=== PATIENT | female | born 1975 ===

== ENCOUNTER → 2018-03-18 | Day surgery (SDC) | payer BC ==
[2018-03-14 09:21] VITALS: Ht 163.8 cm; Wt 106.8 kg
[~2018-03-18] VITALS: Ht 163.8 cm; Wt 106.8 kg
[~2018-03-18] MED LIST: ATROPINE SULFATE 0.1 MG/ML 5ML SYR IV PRN; BUPIVACAINE 0.5 % 5 MG/1 ML PF 10ML VIAL ONE; CYAN100020 PO; DEXAMETHASONE SOD INJ 4 MG/ML VIAL ONE; ERGO500037 PO; ESOM20CA PO; EpHEDrine SULFATE INJ 50 MG/ML AMP IV PRN; EpINEphrine INJ 1MG/ML AMP 1 MG/ML AMP ONE; FAMO40TA6 PO; FENTANYL CITRATE INJ 50 MCG/1 ML 2 ML VIAL IV PRN; FENTANYL CITRATE INJ 50 MCG/1 ML 2 ML VIAL ONE; KETOROLAC TROMETHAMINE 30 MG/ML VIAL ONE; LACTATED RINGER'S 1000ML 1,000 ML IV SCH; LIDOCAINE HCL 2% 2 ML VIAL (20MG/ML) ONE; MELO-84 PO; MIDAZOLAM HCL 1 MG/ML 2ML VIAL ONE; ONDANSETRON INJ 2 MG/ML 2 ML VIAL IV PRN; ONDANSETRON INJ 2 MG/ML 2 ML VIAL ONE; OXYCODONE/ACETAMINOPHEN 5-325 TAB PO PRN; PROPOFOL IV EMULSION 10 MG/ML 20 ML VIAL ONE; ROPIVACAINE 0.5% 5 MG/ML 30 ML VIAL ONE; SODIUM CHLORIDE 0.9% 1000ML 1,000 ML IV SCH; TRAM-10 PO
--- NOTE | 2018-03-18 07:52 | History & Physical Bridge - [place] ---
H&P Re-Evaluation Bridge Note: I have examined the patient, reviewed the History & Physical and in the interval since the performance of the History & Physical I have noted the following changes of clinical significance: No changes noted
[2018-03-18] MEDS: CEFAZOLIN 2000MG IV PUSH 15 ML IV SCH ×2 (07:55→08:34)
--- NOTE | 2018-03-18 09:04 | [facility] Post Operative Brief Note ---
Immediate Operative Summary Operative Date Mar 18, 2018. Pre-Operative Diagnosis Right Knee Acute Lateral Meniscal Tear Post-Operative Diagnosis Right Knee Acute Lateral Meniscal Tear, Grade 3 DJD of trochleal groove Procedure(s) Performed Right Knee Arthroscopy, Lateral Meniscectomy, CHONDROPLAST TROCHLEAR GROOVE Surgeon Dr Randle Technical Engineer Surgeon(s) DMITRY Domínguez Estimated Blood Loss 0ml Findings Consistent with Post-Op Diagnosis Specimens none Drains None Anesthesia Type General Complication(s) none Disposition Accompanied Pt To Recover: no Disposition: Recovery Room / PACU
--- NOTE | 2018-03-18 09:17 | Discharge Instructions-SurgCtr ---
Discharge Instructions Date of Service Mar 18, 2018. Visit Reason for Visit: Right Knee Acute Lateral Meniscal Tear Discharge Discharge Diagnosis / Problem: SAME ABOVE Discharge Goals Goal(s): Decrease discomfort, Improve function Activity Recommendations Activity Limitations: as noted below Lifting Limitations: until after follow-up appointment Exercise/Sports Limitations: until after follow-up appointment Shower/Bathe: tomorrow Weightbearing Status: Right weightbearing (as tolerated) Anesthesia . Post Anesthesia Instructions: If you have had General Anesthesia or IV Sedation: * Do not drive today. * Resume driving when surgeon permits. * Do not make important decisions or sign legal documents today. * Call surgeon for: 1. Temperature elevations greater than 101 degrees F. 2. Uncontrollable pain. 3. Excessive bleeding. 4. Persistent nausea and vomiting. 5. Medication intolerance (nausea, vomiting or rash). * For nausea and vomiting use only clear liquids such as: tea, soda, bouillon until nausea subsides, then gradually increase diet as tolerated. * If you have any concerns or questions, call your surgeon's office. If physician is unavailable and it is an emergency, call 911 or go to the nearest emergency room. . Instructions / Follow-Up Instructions / Follow-Up MEDICATIONS: * Resume previous medications unless instructed otherwise by your surgeon. * Always take pain medication on a full stomach or with food to avoid upset stomach. * Do not drink alcohol or drive while taking narcotics. * Ibuprofen or Tylenol may be taken if narcotic not needed. SPECIAL CARE INSTRUCTIONS: __ None _X_ Keep extremity elevated and iced x 48 hours; apply ice 20-30 minutes 8-10 times/day. May remove at night. __ Crutches __ May discard when able __ Brace/Post-op shoe __ 24 hrs/day __ Remove at night _X_ Dressing __ Maintain until seen in office, may shower with plastic over site _X_ Remove dressings in 24-48 hours and then may shower _X_ Cover incisions with band-aids after showering __ Do not remove steri-strips Call physician if chills or temperature rises above 102 degrees or pain unrelieved by prescribed pain medications. Office [phone] Diet Recommendations Home Diet: resume previous diet Procedures Procedures Performed: Right Knee Arthroscopy, Lateral Meniscectomy, CHONDROPLAST TROCHLEAR GROOVE Pending Studies Studies pending at discharge: no Medical Emergencies . Who to Call and When: Medical Emergencies: If at any time you feel your situation is an emergency, please call 911 immediately. . Non-Emergent Contact Non-Emergency issues call your: Primary Care Provider . . "Provider Documentation" section prepared by Vicente Gray. .
--- NOTE | 2018-03-18 09:45 | OPERATIVE REPORT ---
DATE OF OPERATION: 03/18/2018 PREOPERATIVE DIAGNOSIS: Lateral meniscus tear, right knee. POSTOPERATIVE DIAGNOSES: 1. Complex tear with associated flap lateral meniscus, right knee. 2. 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 PROCEDURES: 1. Right knee arthroscopy. 2. Partial lateral meniscectomy. 3. Chondroplasty trochlear groove patellofemoral joint. SURGEON: Shaheen Randle MD MATCHING MACHINE OPERATOR: Vicente Gray PA-C. ANESTHESIOLOGIST: Dr. Dejesus. ANESTHESIA: LMA. DRAINS: None. COMPLICATIONS: None. CONDITION: Patient tolerated the procedure well and returned to recovery in apparent satisfactory condition. INDICATIONS FOR SURGERY: Destinee is a 43-year-old female who injured her knee and sustained a lateral meniscus tear. Physical exam, history and MRI were consistent with lateral meniscal pathology and she elected to go ahead and proceed with surgery. Procedure, expected outcomes, side effects and risks were all explained in detail. PROCEDURE: Patient was taken to the OR at which time she was placed supine on the table and put to sleep by anesthesia department. Examination of left knee was performed. Ligamentous miles, it was stable. We went ahead and prepped and draped in usual sterile fashion. We began arthroscopic examination anteromedial and anterolateral portals. Medial compartment was inspected and found to be normal. ACL was fine. We found a flap tear of the lateral meniscus and a piece was up into the joint. We removed this portion first and we trimmed back to a stable rim. The articular surfaces looked to be in good shape. Inspected the patellar joint and patellofemoral joint, we found a grade 4 lesion of the trochlear groove, it was probably about 3 x 3 cm in size. Chondroplasty was done here. There were some slight changes also underneath surface of the patella. Light debridement was done here with some synovitis also which was removed. Remaining examination, the knee was unremarkable. All cannulas were removed. Portals were closed with 4-0 nylon sutures. 30 mL of ropivacaine, 10 mg of Toradol, and 1 mL of epinephrine was placed in the knee joint. Placed sterile dressing of Xeroform, 4 x 4, ABD, Sof-Rol, and an Gaetano bandage. SURGICAL FINDINGS: Include: 1. A displaced complex flap tear of the lateral meniscus. 2. She had grade 4 articular damage to the trochlear groove of the patellofemoral joint. I attest to the content of the Intraoperative Record and any orders documented therein. Any exceptions are noted below. ELROYD
[2018-03-18 09:53] VITALS: TEMP 36.1
--- NOTE | 2018-03-18 10:01 | Anesthesia Progress Nt - [facility] ---
Anesthesia Post Op Note Date & Time Mar 18, 2018 at 10:01 Vital Signs Pain Intensity: 2 Vital Signs Past 12 Hours Date Time Temp Pulse Resp B/P (MAP) Pulse Ox O2 Delivery O2 Flow Rate FiO2 03/18/18 09:57 72 18 03/18/18 09:57 72 18 94 03/18/18 09:56 117/68 03/18/18 09:53 36.1 69 20 117/68 95 Room Air 03/18/18 09:52 66 15 03/18/18 09:52 64 15 100 03/18/18 09:51 121/77 03/18/18 09:47 70 15 03/18/18 09:47 69 15 93 03/18/18 09:46 134/78 03/18/18 09:42 77 11 95 03/18/18 09:42 77 11 03/18/18 09:41 116/63 03/18/18 09:37 77 17 03/18/18 09:37 77 17 98 03/18/18 09:36 111/82 03/18/18 09:32 74 20 100 03/18/18 09:32 75 20 03/18/18 09:31 78 16 03/18/18 09:31 81 16 128/72 99 03/18/18 09:26 76 9 132/73 100 03/18/18 09:26 76 9 03/18/18 09:21 88 10 126/72 96 03/18/18 09:21 85 10 03/18/18 09:16 79 19 122/67 97 03/18/18 09:16 79 19 03/18/18 09:12 112/66 03/18/18 09:11 36.0 77 16 112/66 96 Mask 6 03/18/18 07:35 36.2 76 16 106/74 (85) 98 Room Air Notes Mental Status: alert / awake / arousable, participated in evaluation Pt Amnestic to Procedure: Yes Nausea / Vomiting: adequately controlled Pain: adequately controlled Airway Patency, RR, SpO2: stable & adequate BP & HR: stable & adequate Hydration State: stable & adequate Anesthetic Complications: no major complications apparent
[2018-03-18 10:44] VITALS: BP 123/76; PULSE 81; O2SAT 98
== END | disposition home or self-care (01) ==
LOC: X.SURG 06:51
PROVIDERS: ATTEND Orthopaedic Surgery
DX: S83.271A Complex tear of lateral meniscus, current injury, right knee, initial encounter (principal); M24.10 Other articular cartilage disorders, unspecified site; X58.XXXA Exposure to other specified factors, initial encounter; M19.90 Unspecified osteoarthritis, unspecified site; Z79.899 Other long term (current) drug therapy; E66.01 Morbid (severe) obesity due to excess calories; Z68.41 Body mass index [BMI] 40.0-44.9, adult